=== PATIENT | female | born 1965 | race Caucasian/White ===

== ENCOUNTER 2017-11-16 11:28 | Emergency (ER) | payer OTHER ==
[~2017-11-16] VITALS: Ht 167.6 cm; Wt 63.5 kg
[~2017-11-16 11:28] MED LIST: IBUPROFEN 200200 M1 PO; RELAFEN500 MG PO
[2017-11-16] MEDS ORDERED: LIPITOR10 MG PO (11:38)
[2017-11-16] MEDS ORDERED: METHIMAZOLE5 MG PO (11:38)
[2017-11-16] MEDS ORDERED: IBUPROFEN 600600 M1 PO (13:00)
== END 2017-11-16 13:30 | disposition home or self-care (01) ==
LOC: ER 11:28
DX: S20.211A Contusion of right front wall of thorax, initial encounter (principal); M25.511 Pain in right shoulder; Z87.891 Personal history of nicotine dependence; W18.39XA Other fall on same level, initial encounter; Y93.01 Activity, walking, marching and hiking; Y92.89 Other specified places as the place of occurrence of the external cause; Y99.8 Other external cause status